=== PATIENT | female | born 1995 | race Caucasian/White ===

== ENCOUNTER 2023-01-09 13:58 | Emergency (ER) | payer OTHER, SELFPAY ==
[2023-01-09 14:24] VITALS: BP 130/79; PULSE 82; RESP 16; TEMP 36.8; O2SAT 100; BMI 34.9
[2023-01-09 15:02] VITALS: BP 126/69; PULSE 77; RESP 16; O2SAT 99
--- NOTE | 2023-01-09 15:13 | W.ED.HEATRA ---
HPI - Head Injury General: Chief complaint: Head Injury Stated complaint: Head pain, dizziness, pressure in neck Time Seen by Provider: 01/09/23 15:00 Source: patient Mode of arrival: ambulatory Limitations: no limitations History of Present Illness: This 27-year-old female presents to the ER for evaluation of head injury that occurred 2 days ago. She accidentally hit her head on her child's bunk bed and in the process, flipped her neck backwards. Initially, she had headache which has presently gone away. She experiences dizziness that is intermittent and brought on by movement of her head in certain directions. She also had nausea which has presently resolved. Patient complains of intermittent ringing in the ear. She has no fever, neck stiffness, chest pain, shortness of breath or any other significant systemic symptoms. She is clinically stable. Associated symptoms: Deny neck pain Review of Systems Const: Denies: chills, body aches or change in appetite Eyes: Denies: change in vision or eye discharge ENMT: Denies: throat pain or dental pain Card: Denies: chest pain or lightheadedness GI: Denies: diarrhea : Denies: dysuria Musc: Denies: neck pain or back pain Neuro: Reports: dizziness and other (Intermittent ringing in the ear) Psych: Denies: depression Norman/Lymph: Denies: easy bruising All/Imm: Denies: urticaria, tongue swelling or facial swelling Physical Exam Const: COMMON NORMALS: no acute distress, patient oriented x3, no limitations and alert HENMT: COMMON NORMALS: normocephalic HEAD & SCALP: normocephalic Eye: COMMON NORMALS: EOMs intact bilaterally Neck/C-Spine: COMMON NORMALS: full ROM and supple Chest: COMMONS NORMALS: normal inspection of the chest Resp: COMMON NORMALS: normal respiratory effort, No retractions, No use of accessory muscles and clear to auscultation bilaterally AUSCULTATION: clear to auscultation bilaterally Cardio: COMMON NORMALS: regular rate, regular rhythm and No murmurs present (Cardio) RATE: regular rate RHYTHM: regular rhythm GI: COMMON NORMALS: Normal to inspection, nondistended, normoactive bowel sounds present and non-tender : COMMON NORMALS: Yes no CVA tenderness BLADDER/KIDNEY EXAM: Yes no CVA tenderness Back/Pelvis: COMMON NORMALS: no CVA tenderness and no thoracic nor lumbar tenderness Extremity: GENERAL: Yes normal exam except as noted Neuro: COMMON NORMALS: patient oriented x3 and no focal motor deficits SENSORIUM/ORIENTATION: Yes alert Psych: COMMON NORMALS: mental status grossly normal and cooperative Course Vital Signs: Vital signs: Vital Signs Temperature 98.2 F 01/09/23 14:24 Pulse Rate 73 01/09/23 16:18 Respiratory Rate 16 01/09/23 16:18 Blood Pressure 136/83 01/09/23 16:18 Pulse Oximetry 99 01/09/23 16:18 Oxygen Delivery Me thod Room Air 01/09/23 16:18 MDM - Head Injury Medcial Decision Making Decision making: Patient presents for evaluation following a head injury 2 days ago. Clinical exam is negative for any focal neurologic deficit. CT brain is negative for any acute intracranial process. I believe that patient is exhibiting concussive symptoms as a result of the head injury. She was reassured that rest, adequate fluid intake and avoiding activities that are tasking to the brain will improve her symptoms. She will follow-up with her primary care physician for reevaluation. Return instructions provided. Lab Data Radiology Impressions Head CT 01/09/23 15:16 IMPRESSION: No CT evidence of acute intracranial pathology. Cervical Spine CT 01/09/23 15:17 IMPRESSION: 1. No CT evidence of acute cervical spine traumatic injury. 2. Additional findings, as above. Discharge Plan Discharge Patient Disposition: Home Clinical Impression: Head injury, intracranial, without loss of consciousness or fracture, Vertigo Condition: Stable Prescriptions: No Action acetaminophen 325 mg Tablet 650 mg PO QID PRN (Reason: Pain) Discharge Orders: Discharge ED (Routine); Ordered 01/09/23 Ordered By: Jairo Ramos Discharge Diet: Usual diet Discharge Activity: Resume usual activity Patient Instructions: Opioid Safety, Pain Management Activity Restrictions/Additional Instructions: Rest. Take [id number] Tylenol or Motrin as needed. Avoid any activity that will be very tasking to the brain for example complex arithmetic or staring for prolonged periods of time at a computer or phone screen. Maintain adequate fluid intake. Follow-up with your primary care physician within a week for reevaluation. Return with new or worsening symptoms. Coding Level of Care Code ED Travel Registered Nurse [facility] for Moises Whipple
--- NOTE | 2023-01-09 15:16 | CTR_ITS ---
PROCEDURE INFORMATION: Exam: CT Head Without Contrast Exam date and time: 01/09/2023 3:42 PM Age: 27 years old Clinical indication: Injury or trauma; Other: Hit head on bunk bead; Concussion/head injury; Without loss of consciousness; Additional info: Head trauma TECHNIQUE: Imaging protocol: Computed tomography of the head without contrast. Axial, coronal and sagittal reformatted images were created and reviewed. Radiation optimization: All CT scans at this facility use at least one of these dose optimization techniques: automated exposure control; mA and/or kV adjustment per patient size (includes targeted exams where dose is matched to clinical indication); or iterative reconstruction. REPORTING DATA: Count of CT and Cardiac NM exams in prior 12 months: This patient has received 0 known CTs and 0 known cardiac nuclear medicine studies in the 12 months prior to the current study. COMPARISON: No relevant prior studies available. RADIATION DOSE METRICS: Total DLP (mGy-cm): 1095.14 FINDINGS: Brain: No CT evidence of acute intracranial hemorrhage or acute territorial infarction. No significant mass effect or midline shift. Basal cisterns patent. Cerebral ventricles: Normal in size and configuration. Paranasal sinuses: Unremarkable. No fluid levels. Mastoid air cells: Grossly unremarkable. Bones/joints: No acute osseous abnormality. Soft tissues: Grossly unremarkable. CT/CT head wo con* [id number] IMPRESSION: No CT evidence of acute intracranial pathology.
--- NOTE | 2023-01-09 15:17 | CTR_ITS ---
PROCEDURE INFORMATION: Exam: CT Cervical Spine Without Contrast Exam date and time: 01/09/2023 3:42 PM Age: 27 years old Clinical indication: Injury or trauma; Other: Hit head on bunk bed; Blunt trauma TECHNIQUE: Imaging protocol: Computed tomography of the cervical spine without contrast. Axial, coronal and sagittal reformatted images were created and reviewed. Radiation optimization: All CT scans at this facility use at least one of these dose optimization techniques: automated exposure control; mA and/or kV adjustment per patient size (includes targeted exams where dose is matched to clinical indication); or iterative reconstruction. REPORTING DATA: Count of CT and Cardiac NM exams in prior 12 months: This patient has received 0 known CTs and 0 known cardiac nuclear medicine studies in the 12 months prior to the current study. COMPARISON: No relevant prior studies available. RADIATION DOSE METRICS: Total DLP (mGy-cm): 230.4 FINDINGS: Bones/joints: Straightening of the normal cervical lordosis. No CT evidence of acute fracture, dislocation or subluxation. Mild anterolisthesis of C4 on C5. Alignment otherwise anatomic. Vertebral body heights maintained. Lungs: Grossly unremarkable. Soft tissues: Grossly unremarkable. CT/CT cervical spin wo con* [id number] IMPRESSION: 1. No CT evidence of acute cervical spine traumatic injury. 2. Additional findings, as above.
[2023-01-09 16:18] VITALS: BP 136/83; PULSE 73; RESP 16; O2SAT 99
--- NOTE | 2023-01-15 12:12 | DCPLANNER ---
government program manager was triggered to call patient due to no primary care physician - patient does not live in the area.
== END 2023-01-09 17:25 | disposition home or self-care (01) ==
PROVIDERS: Emergency Provider Family Medicine
DX: S06.9X0A Unspecified intracranial injury without loss of consciousness, initial encounter (principal); R42 Dizziness and giddiness; W22.09XA Striking against other stationary object, initial encounter
CPT/HCPCS: 70450; 72125; 99284